=== PATIENT | male | born 1985 | race Two or more races ===

== ENCOUNTER 2017-08-10 11:02 | Emergency (ER) | payer OTHER ==
[~2017-08-10] VITALS: Ht 172.7 cm; Wt 102.1 kg
[2017-08-10 11:07] VITALS: BP 137/85
== END 2017-08-10 11:27 | disposition home or self-care (01) ==
LOC: ER 11:03
DX: F19.10 Other psychoactive substance abuse, uncomplicated (principal)
CPT/HCPCS: 99283; A4606; Z7610